=== PATIENT | female | born 1975 | race Caucasian/White ===

== ENCOUNTER 2024-12-22 10:21 | Emergency (ER) | payer SELFPAY ==
[2024-12-22] MEDS ORDERED: Ketorolac Tromethamine 30 MG (1 mL) VIAL ONE (10:55)
[2024-12-22] MEDS ORDERED: Cyclobenzaprine 10 MG TAB ONE (10:55)
[2024-12-22] MEDS ORDERED: Gabapentin 300 MG CAP ONE (10:55)
[2024-12-22 11:17] LABS: #Basophils 0.06 10x3/uL (0.0-0.2); %Basophils 0.7 % (0.0-1.0); %Eosinophils 1.2 % (0.0-10.0); %Lymphocytes 26.3 % (21.0-51.0); %Monocytes 7.4 % (0.0-10.0); %Neutrophils 64.1 % (42.0-75.0); Hemoglobin 13.7 g/dL (12.0-16.0); Mean Corpuscular HGB CONC 34.3 g/dL (32.0-36.0); Mean Corpuscular Hemoglobin 30.3 pg (27.0-31.0); Mean Corpuscular Volume 88.5 fL (78.0-98.0); Mean Platelet Volume 8.8 fL (7.4-10.4); Platelet Count 305 10x3/uL (130-400); RBC Distribution Width 12.8 % (11.5-14.5); Red Blood Cell (RBC) Count 4.52 mill/uL (4.20-5.40)
[2024-12-22 11:34] LABS: ALT (SGPT) 21 U/L (Less than 34); AST (SGOT) 25 U/L (11-34); Albumin 3.8 g/dL (3.1-4.5); Alkaline Phosphatase 110 U/L (40-110); Anion Gap 13 mmol/L (10-20); BUN (Urea Nitrogen) 20 mg/dL (7.0-18.7); Bilirubin, Total 0.3 mg/dL (0.3-1.2); Calc. Creatinine Clearance 0 mL/min (70-130); Calcium 8.9 mg/dL (7.8-10.44); Carbon Dioxide 25 mmol/L (22-29); Chloride 105 mmol/L (98-107); Estimated GFR 110; Globulin 3.2 g/dL (2.4-3.5); Glucose 94 mg/dL (70-105); Potassium 4.1 mmol/L (3.5-5.1); Sodium 139 mmol/L (136-145)
[2024-12-22 11:38] LABS: Troponin I 0.013 ng/mL (< 0.028)
[2024-12-22 11:40] LABS: BHCG - Serum Negative (NEGATIVE); Pregs Control Background? CLEAR/WHITE (CLR/WHITE); Pregs Control Bar Appear? YES (CONTROL BAR)
== END 2024-12-22 11:53 | disposition home or self-care (01) ==
LOC: ERS 10:21
DX: M54.12 Radiculopathy, cervical region (principal)
CPT/HCPCS: 36415; 71045; 80053; 84484; 84703; 85025; 93005; 96372; J1885